=== PATIENT | female | born 2000 | race African-American/Black ===

== ENCOUNTER 2019-04-20 02:56 | Emergency (ER) | payer MEDICAID ==
[~2019-04-20] VITALS: Ht 175.3 cm; Wt 52.8 kg
[2019-04-20 03:01] VITALS: Ht 175.3 cm; Wt 52.8 kg
[2019-04-20] MEDS ORDERED: ONDANSETRON (ODT) 4 MG TAB ODT STA (03:22)
[2019-04-20] MEDS ORDERED: BISM-34 PO (03:39)
[2019-04-20] MEDS ORDERED: ONDA4TAB14 PO (03:39)
--- NOTE | 2019-04-20 03:39 | ERD ---
ER Documentation Chief Complaint Chief Complaint vomited 2x@home,still nauseaous but lightheaded this time; denies HPI 18-year-old female with no significant past medical history presents to the emergency department complaining of intermittent nausea, vomiting, and diarrhea which began this morning. The patient states she ate her grandma's leftover food yesterday which may have been rotten and she believes this caused her symptoms. Symptoms are currently mild. She denies any fevers, chills, dysuria, abdominal pain, or other symptoms at this time. ROS All systems reviewed and are negative except as per history of present illness. Allergies Allergies: Coded Allergies: Penicillins (Verified Allergy, Unknown, 04/20/19) PMhx/Soc Medical and Surgical Hx: pt denies Medical Hx, pt denies Surgical Hx Hx Miscellaneous Medical Probl: No Hx Alcohol Use: Yes (Rarely) Hx Substance Use: Yes (Marijuana) Hx Tobacco Use: No Smoking Status: Never smoker FmHx Family History: No diabetes Physical Exam Vitals Vital Signs Date Temp Pulse Resp B/P (MAP) Pulse Ox O2 O2 Flow FiO2 Time Delivery Rate 04/20/19 99.6 85 18 119/68 100 03:01 (85) Physical Exam Const: No acute distress Head: Atraumatic Eyes: Normal Conjunctiva ENT: Normal External Ears, Nose and Mouth. Neck: Full range of motion. No meningismus. Resp: Clear to auscultation bilaterally Cardio: Regular rate and rhythm, no murmurs Abd: Soft, non tender, non distended. Normal bowel sounds. No rebound tenderness or guarding. No McBurney's point tenderness. Skin: No petechiae or rashes Back: No midline or flank tenderness Ext: No cyanosis, or edema Neur: Awake and alert Psych: Normal Mood and Affect Results 24 hrs Current Medications Medications Dose Sig/Elliot Start Time Status Last (Trade) Ordered Route PRN Stop Time Admin Dose Reason Admin Ondansetron 4 mg ONCE STAT 04/20/19 DC 04/20/19 HCl (Zofran ODT 03:22 03:28 Odt) 04/20/19 03:23 Procedures/MDM 18-year-old female presents to the emergency department with signs and symptoms most consistent with gastroenteritis, likely viral etiology. Patient's abdominal examination is completely benign. She is nontoxic, afebrile, well- appearing. She is improved in the department of Zofran and was tolerating p.o. fluids prior to discharge. For these reasons I do not believe that further work-up is indicated at this time. Low suspicion for acute surgical abdomen or other emergencies. Patient will be discharged home with prescriptions to treat her symptoms as an outpatient. She was advised to return to the department immediately for any new or worsening or concerning symptoms. She understands and agrees with the plan. Departure Diagnosis: Primary Impression: Nausea, vomiting, and diarrhea Condition: Fair Additional Instructions: Follow up with your PCP within the next 1-3 days for a repeat evaluation. If you require a referral to a specialist, your Primary Care Provider may be able to provide this for you. In most patient cases, a referral is not required. If you have further questions regarding this matter, please ask your Primary Care Provider. Return the the emergency department immediately if symptoms worsen or change. If you have any questions regarding medications, ask your pharmacist or us before you leave. If any adverse reactions, occur while taking your medications, discontinue the treatment and return to the emergency department immediately. If any new or worsening symptoms, uncontrolled fevers, or other unexplained symptoms occur, return to the emergency department immediately. Take your medications as directed, and complete the entire course of treatment. DARION CHAMBERS PA-C Apr 20, 2019 03:39
[2019-04-20 04:03] VITALS: BP 118/72; PULSE 78; RESP 17
== END 2019-04-20 04:03 | disposition home or self-care (01) ==
LOC: FTE 02:56
DX: R11.2 Nausea with vomiting, unspecified (principal); R19.7 Diarrhea, unspecified
CPT/HCPCS: Z7502; Z7610; 99283